=== PATIENT | female | born 1960 | race Caucasian/White ===

== ENCOUNTER 2017-05-22 13:14 | Emergency (ER) | payer OTHER ==
[2017-05-22 16:43] LABS: ADD UMIC YES; UR ASCORBIC ACID NEGATIVE (NEGATIVE); UR BACTERIA MODERATE /HPF (NONE SEEN); UR BILIRUBIN (Dip) NEGATIVE (NEGATIVE); UR BLOOD (Dip) 1+ mg/dL (NEGATIVE); UR CLARITY TURBID (CLEAR); UR COLOR YELLOW (YELLOW); UR GLUCOSE (Dip) 3+ mg/dL (NEGATIVE); UR KETONES (Dip) TRACE mg/dL (NEGATIVE); UR LEUKOCYTE ESTERASE (Dip) 3+ Leu/ul (NEGATIVE); UR NITRITE (Dip) NEGATIVE (NEGATIVE); UR RBC 7 /HPF (0-5); UR SPECIFIC GRAVITY (Dip) 1.016 (1.003-1.030); UR SQUAMOUS EPITHELIAL CELL FEW /HPF (FEW); UR TOTAL PROTEIN (Dip) 2+ mg/dl (NEGATIVE); UR UROBILINOGEN (Dip) NEGATIVE (NEGATIVE); UR WBC > 182 /HPF (0-5)
== END 2017-05-22 15:40 | disposition home or self-care (01) ==
LOC: FTE 13:14
DX: N30.00 Acute cystitis without hematuria (principal); B37.3 Candidiasis of vulva and vagina; E11.9 Type 2 diabetes mellitus without complications; I10 Essential (primary) hypertension; E03.9 Hypothyroidism, unspecified; Z79.01 Long term (current) use of anticoagulants; Z79.4 Long term (current) use of insulin; Z79.82 Long term (current) use of aspirin; Z85.9 Personal history of malignant neoplasm, unspecified
CPT/HCPCS: 81001; 87086; 99283

== ENCOUNTER 2018-08-06 19:54 | Emergency (ER) | payer OTHER ==
[2018-08-07] MEDS: SOD CHLORIDE 0.9% 500 ML IV (00:31)
[2018-08-07 00:33] LABS: MEAN CORPUSCULAR HEMOGLOBIN 29.6 pg (29.0-33.0); MEAN CORPUSCULAR HGB CONC 34.3 g/dl (32.0-37.0); MEAN CORPUSCULAR VOLUME 86.4 fl (82.0-101.0); RED BLOOD COUNT 4.05 10^6/ul (4.20-5.40)
[2018-08-07 00:33] LABS: WHITE BLOOD COUNT 6.3 10^3/ul (4.8-10.8)
[2018-08-07 00:39] LABS: ADD MAN DIFF? YES; MEAN PLATELET VOLUME 11.7 fl (7.4-10.4); PLATELET COUNT 113 10^3/UL (140-415); POSITIVE DIFF @See below
[2018-08-07 00:52] LABS: ANION GAP 10 (5-13); BLOOD UREA NITROGEN 21 mg/dl (7-20); CALCIUM 9.9 mg/dl (8.4-10.2); CARBON DIOXIDE 29 mmol/L (21-31); CHLORIDE 99 mmol/L (97-110); Estimated GFR > 60 mL/min (>60); GLUCOSE 379 mg/dl (70-220); POTASSIUM 3.9 mmol/L (3.5-5.1); SODIUM 138 mmol/L (135-144)
[2018-08-07 00:56] LABS: INR 0.89; PROTIME 12.1 Sec (11.9-14.9); PT RATIO 0.9
[2018-08-07 01:03] LABS: TROPONIN-I < 0.012 ng/ml (0.000-0.120)
[2018-08-07 01:10] LABS: FREE T4 (FREE THYROXINE) 1.47 ng/dl (0.64-1.79)
[2018-08-07] MEDS: SOD CHLORIDE 0.9% 1,000 ML IV (01:36)
[2018-08-07 01:40] LABS: BAND NEUTROPHILS #M 0.1 10^3/ul (0.0-0.6); BAND NEUTROPHILS % (M) 3 % (0-4); ERYTHROBLAST% (NRBC) (M) 1 % (0-0); GIANT THROMBO% (M) 4 % (0-0); LYMPHOCYTES % (M) 49 % (15-51); METAMYELOCYTES %M 1 % (0-0); MONOCYTE #M 0.1 10^3/ul (0.3-0.9); MONOCYTES % (M) 3 % (0-11); MYELOCYTES % (M) 1 % (0-0); PLASMAC%(M) 1 % (0); PLATELET ESTIMATE DECREASED; POIKILOCYTOSIS 3+ (0-0); POLYCHROMASIA 2+ (0-0); REACTIVE LYMPHOCYTES% (M) 1 % (0-0); SEG NEUT #M 2.6 10^3/ul (1.6-7.5); SEGMENTED NEUTROPHILS (M) % 41 % (39-77); SMUDGE%M 42 % (0-0)
== END 2018-08-07 03:21 | disposition home or self-care (01) ==
LOC: E/R 19:54
DX: R53.83 Other fatigue (principal); E86.0 Dehydration; D69.6 Thrombocytopenia, unspecified; E03.9 Hypothyroidism, unspecified; E11.65 Type 2 diabetes mellitus with hyperglycemia; I10 Essential (primary) hypertension; I25.10 Atherosclerotic heart disease of native coronary artery without angina pectoris; I50.9 Heart failure, unspecified; Z85.3 Personal history of malignant neoplasm of breast; Z79.01 Long term (current) use of anticoagulants; Z79.82 Long term (current) use of aspirin; Z79.4 Long term (current) use of insulin
CPT/HCPCS: 36415; 71045; 80048; 84439; 84443; 84484; 85025; 85610; 86850; 86900; 86901; 93005; 99285-25

== ENCOUNTER 2018-08-11 13:16 | Emergency (ER) | payer OTHER | END 2018-08-11 15:59 | disposition home or self-care (01) | LOC: FTE 13:16 | DX: R21 Rash and other nonspecific skin eruption (principal); I25.10 Atherosclerotic heart disease of native coronary artery without angina pectoris; I25.2 Old myocardial infarction; Z79.82 Long term (current) use of aspirin; Z79.01 Long term (current) use of anticoagulants; Z79.4 Long term (current) use of insulin; Z85.3 Personal history of malignant neoplasm of breast; Z98.61 Coronary angioplasty status | CPT/HCPCS: 99283; Z7502 ==

== ENCOUNTER → 2018-12-02 | Emergency (ER) | payer OTHER ==
[2018-12-02] MEDS: IBUPROFEN 200 MG TAB PO (23:00)
[2018-12-02] MEDS: HYDROCODONE/APAP (5/325) TAB PO (23:01)
== END | disposition home or self-care (01) ==
LOC: FTE 21:45
DX: S60.011A Contusion of right thumb without damage to nail, initial encounter (principal); E11.9 Type 2 diabetes mellitus without complications; I25.2 Old myocardial infarction; S99.911A Unspecified injury of right ankle, initial encounter; W01.0XXA Fall on same level from slipping, tripping and stumbling without subsequent striking against object, initial encounter; Y92.9 Unspecified place or not applicable; Z79.01 Long term (current) use of anticoagulants; Z79.82 Long term (current) use of aspirin; Z79.4 Long term (current) use of insulin; Z85.3 Personal history of malignant neoplasm of breast
CPT/HCPCS: 73140; 73610-RT; 99284-25

== ENCOUNTER 2018-12-15 22:03 | Emergency (ER) | payer OTHER | END 2018-12-15 23:43 | disposition home or self-care (01) | LOC: FTE 22:03 | DX: L03.011 Cellulitis of right finger (principal); L02.511 Cutaneous abscess of right hand | CPT/HCPCS: 99283; Z7502 ==